=== PATIENT | female | born 1950 | race Two or more races ===

== ENCOUNTER → 2019-01-18 | Emergency (ER) | payer OTHER ==
[~2019-01-18] VITALS: Ht 177.8 cm; Wt 62.6 kg
[~2019-01-18] MED LIST: COZAAR25 MG; FA-80.8 MG; METFORMIN HYDRO25 GM; OMEPRAZOLE10 MG; TIGAN300 MG
== END | disposition left against medical advice (07) ==
LOC: ER 00:38
DX: Z53.20 Procedure and treatment not carried out because of patient's decision for unspecified reasons (principal)